=== PATIENT | female | born 1990 | race Two or more races ===

== ENCOUNTER 2020-02-26 04:41 | Inpatient (IN) | payer OTHER ==
[2020-02-26] MEDS ORDERED: Sodium Chloride 0.9% 10 ML Syringe FLUSH PRN ×3 (04:59→05:27)
[2020-02-26] MEDS ORDERED: Lactated Ringers 1,000 ML IV SCH (05:00)
[2020-02-26] MEDS ORDERED: diphenhydrAMINE 50 MG/ML SDV IVPUSH PRN ×3 (05:18→11:55)
[2020-02-26] MEDS ORDERED: Naloxone 0.4 MG/ML SDV IVPUSH PRN ×2 (05:18→11:55)
[2020-02-26] MEDS ORDERED: ePHEDrine 50 MG/ML SDV IVPUSH PRN ×3 (05:18→11:55)
[2020-02-26] MEDS ORDERED: Lactated Ringers 1,000 ML IV ONE (05:18)
[2020-02-26] MEDS ORDERED: Acetaminophen 325 MG Tab PO PRN (05:27)
[2020-02-26] MEDS ORDERED: Ropivacaine 200 MG in Premix Bag 1 BAG EPIDUR SCH (05:30)
--- NOTE | 2020-02-26 05:34 | PCM.LDHP ---
L&D History of Present Illness - General Date of Service: 02/26/20 Admit Problem/Dx: Patient Status Order with Admit Dx/Problem 02/26/20 05:28 Patient Status [ADT] Routine Admission Diagnosis/Problem Admission Diagnosis/Problem - Related Data Allergies/Adverse Reactions: Allergies Allergy/AdvReac Type Severity Reaction Status Date / Time No Known Allergies Allergy Verified 02/26/20 05:21 Home Medications: Home Meds Pnv No.95/Ferrous Fum/Folic AC [ Vitamins Tablet] 1 tab PO DAILY 02/26/20 [History] Past Medical History - Past Health History Medical/Surgical History: Denies Medical/Surgical History Other OB/BYN History: Social & Family History - Family History Family Medical History: Noncontributory H&P Review of Systems - Review of Systems: Review Of Systems: See Below General: Reports: No Symptoms HEENT: Reports: No Symptoms Pulmonary: Reports: No Symptoms Cardiovascular: Reports: No Symptoms Gastrointestinal: Reports: No Symptoms Genitourinary: Reports: No Symptoms Musculoskeletal: Reports: No Symptoms Skin: Reports: No Symptoms Psychiatric: Reports: No Symptoms Neurological: Reports: No Symptoms Hematologic/Lymphatic: Reports: No Symptoms Immunologic: Reports: No Symptoms L&D Exam - Exam Exam: See Below - Vital Signs Vital Signs: Last Vital Signs Temp 36.7 C 02/26/20 04:56 Pulse 79 02/26/20 04:56 Resp 18 02/26/20 04:56 BP 118/63 02/26/20 04:56 Pulse Ox 93 L 02/26/20 04:56 Weight: 59.421 kg - OB Specific Contraction Intensity: Strong Movement: Active Heart Tones: Present Heart Rate (FHR) Variability: Moderate (6-25 bmp) Presentation: Vertex - Guajardo Score Guajardo Score Cervix Position: Anterior Guajardo Score Consistency: Soft Guajardo Score Effacement: >80% Guajardo Score Dilation: > 5 cm Guajardo Score Infant's Station: -1 ,0 Guajardo Score Total: 12 - Exam General: Alert, Oriented, Cooperative HEENT: PERRLA, Conjunctiva Clear, EACs Clear, EOMI, Hearing Intact, Mucosa Moist & [place], Nares Patent, Normal Nasal Septum, Posterior Pharynx Clear, Pupils Equal, Pupils Reactive, TMs Clear Neck: Supple, Trachea Midline Lungs: Clear to Auscultation, Normal Respiratory Effort Cardiovascular: Regular Rate, Regular Rhythm GI/Abdominal Exam: Normal Bowel Sounds, Soft, Non-Tender, No Organomegaly, No Distention, No Abnormal Bruit, No Mass, Pelvis Stable Rectal Exam: Normal Exam, Normal Rectal Tone Genitourinary: Normal external exam, Normal bimanual exam, Normal speculum exam Back Exam: Normal Inspection, Full Range of Motion Extremities: Normal Inspection, Normal Range of Motion, Non-Tender, No Pedal Edema, Normal Capillary Refill Skin: Warm, Dry, Intact Neurological: Cranial Nerves Intact, Reflexes Equal Bilateral Psychiatric: Alert, Normal Affect, Normal Mood - Patient Data Lab Results Last 24 hrs: Laboratory Results - last 24 hr 02/26/20 02/26/20 02/26/20 Range/Units 04:57 05:00 05:00 WBC 7.9 (4.5-11.0) K/uL RBC 4.62 (3.30-5.50) M/uL Hgb 14.1 (12.0-15.0) g/dL Hct 42.6 (36.0-48.0) % MCV 92 (80-98) fL MCH 31 (27-31) pg MCHC 33 (32-36) % Plt Count 142 L (150-400) K/uL Urine Color Yellow (YELLOW) Urine Appearance Slightly cloudy A (CLEAR) Urine pH 7.0 (5.0-8.0) Ur Specific [place] 1.025 (1.008-1.030) Urine Protein Negative (NEGATIVE) mg/dL Urine Glucose (UA) Negative (NEGATIVE) mg/dL Urine Ketones Negative (NEGATIVE) mg/dL Urine Occult Blood Small H (NEGATIVE) Urine Nitrite Negative (NEGATIVE) Urine Bilirubin Negative (NEGATIVE) Urine Urobilinogen 0.2 (0.2-1.0) EU/dL Ur Leukocyte Esterase Negative (NEGATIVE) Urine RBC 0-5 (0-5) Urine WBC 0-5 (0-5) Ur Epithelial Cells Few Amorphous Sediment Not seen Urine Bacteria Few Urine Mucus Not seen Urine Opiates Screen Negative (NEGATIVE) Ur Oxycodone Screen Negative (NEGATIVE) Urine Methadone Screen Negative (NEGATIVE) Ur Propoxyphene Screen Negative (NEGATIVE) Ur Barbiturates Screen Negative (NEGATIVE) Ur Tricyclics Screen Negative (NEGATIVE) Ur Phencyclidine Scrn Negative (NEGATIVE) Ur Amphetamine Screen Negative (NEGATIVE) U Methamphetamines Scrn Negative (NEGATIVE) Urine MDMA Screen Negative (NEGATIVE) U Benzodiazepines Scrn Negative (NEGATIVE) U Cocaine Metab Screen Negative (NEGATIVE) U Marijuana (THC) Screen Negative (NEGATIVE) Result Diagrams: 02/26/20 05:00 - Problem List (1) Labor established SNOMED Code(s): 94400913 ICD Code: [id number] - Status: Acute Current Visit: Yes (2) SNOMED Code(s): 52052496 ICD Code: Z34.90 - ENCNTR FOR SUPRVSN OF NORMAL , UNSP, UNSP TRIMESTER Status: Acute Current Visit: Yes Qualifiers: Weeks of gestation: 40 weeks Qualified Code(s): Z3A.40 - 40 weeks gestation of Problem List Initiated/Reviewed/Updated: Yes Orders Last 24hrs: Active Orders 24 hr Category Date Time Status Patient Status [ADT] Routine ADT 02/26/20 05:28 Ordered Communication Order [RC] ASDIRECTED Care 02/26/20 05:18 Ordered Communication Order [RC] ASDIRECTED Care 02/26/20 05:28 Ordered Communication Order [RC] ROUTINE Care 02/26/20 05:18 Ordered Communication Order [RC] ROUTINE Care 02/26/20 05:18 Ordered Communication Order [RC] ROUTINE Care 02/26/20 05:18 Ordered Heart Tones [RC] PER UNIT ROUTINE Care 02/26/20 05:28 Ordered Non Stress Test [RC] Click to Edit Care 02/26/20 05:28 Ordered Insert Urinary Catheter [OM.PC] ASDIRECTED Care 02/26/20 05:30 Ordered Local Anesthetic Infusion Pump [RC] ASDIRECTED Care 02/26/20 05:18 Ordered May Shower [RC] ASDIRECTED Care 02/26/20 05:27 Ordered Notify Provider Vital Signs [RC] PRN Care 02/26/20 05:27 Ordered Notify Provider [RC] PRN Care 02/26/20 05:28 Ordered OB Check [OM.PC] Click to Edit Care 02/26/20 04:56 Ordered Oxygen Therapy [RC] ASDIRECTED Care 02/26/20 05:18 Ordered PCEA Epidural [RC] ASDIRECTED Care 02/26/20 05:18 Ordered PCEA Epidural [RC] ASDIRECTED Care 02/26/20 05:19 Ordered Peripheral IV Care [RC] . DIRECTED Care 02/26/20 05:19 Ordered Pulse Oximetry [RC] ASDIRECTED Care 02/26/20 05:18 Ordered Up ad Jessika [RC] ASDIRECTED Care 02/26/20 05:27 Ordered Urinary Catheter Assessment [RC] ASDIRECTED Care 02/26/20 05:19 Ordered Vital Signs [RC] PER UNIT ROUTINE Care 02/26/20 05:18 Ordered Vital Signs [RC] PER UNIT ROUTINE Care 02/26/20 05:28 Ordered Acetaminophen [Tylenol] Med 02/26/20 05:27 Ordered 650 mg PO Q4H PRN Lactated Ringers [Ringers, Lactated] 1,000 ml Med 02/26/20 05:18 Ordered IV .BOLUS Lactated Ringers [Ringers, Lactated] 1,000 ml Med 02/26/20 05:15 Ordered IV ASDIRECTED Lactated Ringers [Ringers, Lactated] 1,000 ml Med 02/26/20 05:00 Ordered IV BOLUS Naloxone [Narcan] Med 02/26/20 05:18 Ordered 0.1 mg IVPUSH ASDIRECTED PRN Ondansetron [Zofran] Med 02/26/20 05:27 Ordered 4 mg IV Q4H PRN Oxytocin/Normal Saline [Pitocin in NS 20 Units/1,000 ML Med 02/26/20 05:30 Ordered ] 20 unit in 1,000 ml IV TITRATE Ropivacaine [Naropin 0.2%] 200 mg Med 02/26/20 05:30 Ordered Premix Bag 1 bag EPIDUR ASDIRECTED Sodium Chloride 0.9% [Saline Flush] Med 02/26/20 04:59 Ordered 10 ml FLUSH ASDIRECTED PRN Sodium Chloride 0.9% [Saline Flush] Med 02/26/20 05:18 Ordered 10 ml FLUSH ASDIRECTED PRN Sodium Chloride 0.9% [Saline Flush] Med 02/26/20 05:27 Ordered 10 ml FLUSH ASDIRECTED PRN diphenhydrAMINE [Benadryl] Med 02/26/20 05:18 Ordered 25 mg IVPUSH Q6H PRN diphenhydrAMINE [Benadryl] Med 02/26/20 05:18 Ordered 50 mg IVPUSH Q6H PRN ePHEDrine [ePHEDrine sulfate] Med 02/26/20 05:18 Ordered 10 mg IVPUSH ASDIRECTED PRN Epidural Catheter Management [OM.PC] Routine Oth 02/26/20 05:18 Ordered Epidural Catheter Management [OM.PC] Urgent Oth 02/26/20 05:18 Ordered Peripheral IV Insertion Pediatric [OM.PC] Routine Oth 02/26/20 05:18 Ordered Saline Lock Insert [OM.PC] Routine Oth 02/26/20 04:59 Ordered Saline Lock Insert [OM.PC] Routine Oth 02/26/20 05:28 Ordered Resuscitation Status Routine Resus Stat 02/26/20 05:27 Ordered Medication Orders Acetaminophen (Tylenol) 650 mg PO Q4H PRN PRN Reason: Pain (Mild 1-3) and fever Diphenhydramine HCl (Benadryl) 25 mg IVPUSH Q6H PRN PRN Reason: Itching Diphenhydramine HCl (Benadryl) 50 mg IVPUSH Q6H PRN PRN Reason: Itching Ephedrine Sulfate (Ephedrine Sulfate) 10 mg IVPUSH ASDIRECTED PRN PRN Reason: Hypotension Lactated Ringer's (Ringers, Lactated) 1,000 mls @ 999 mls/hr IV BOLUS RACHELLE Lactated Ringer's (Ringers, Lactated) 1,000 mls @ 125 mls/hr IV ASDIRECTED RACHELLE Oxytocin/Sodium Chloride (Pitocin In Ns 20 Units/1,000 Ml) 20 unit in 1,000 mls @ 6 mls/hr IV TITRATE RACHELLE; Protocol Lactated Ringer's (Ringers, Lactated) 1,000 mls @ 999 mls/hr IV .BOLUS ONE Stop: 02/26/20 06:18 Ropivacaine 200 mg/ Premix 100 mls @ 0 mls/hr EPIDUR ASDIRECTED RACHELLE Naloxone HCl (Narcan) 0.1 mg IVPUSH ASDIRECTED PRN PRN Reason: Oversedation Sodium Chloride (Saline Flush) 10 ml FLUSH ASDIRECTED PRN PRN Reason: Keep Vein Open Sodium Chloride (Saline Flush) 10 ml FLUSH ASDIRECTED PRN PRN Reason: Keep Vein Open Sodium Chloride (Saline Flush) 10 ml FLUSH ASDIRECTED PRN PRN Reason: Keep Vein Open
[2020-02-26] MEDS: Lactated Ringers 1,000 ML IV SCH ×4 (05:47→21:16)
[2020-02-26] MEDS ORDERED: Ropivacaine 100 ML ONE (05:49)
[2020-02-26] MEDS ORDERED: Carboprost Tromethamine 250 MCG/1 ML Amp ONE (05:50)
[2020-02-26] MEDS ORDERED: Methylergonovine 0.2 MG/1 ML Amp ONE (05:50)
[2020-02-26] MEDS ORDERED: Misoprostol 200 MCG Tab ONE (05:50)
--- NOTE | 2020-02-26 09:49 | ANES ---
DATE OF SERVICE: 02/26/2020 TIME: 05:40. I was called to the Labor and Delivery unit by Alma Montenegro for evaluation for a labor epidural. This lady is in active labor and approximately 6 cm or so. Risks and benefits of the procedure were explained to the patient. She wished to proceed with labor epidural. TECHNIQUE: She was placed in a sitting position. Her back was prepped x3 with Betadine. 1% lidocaine skin local was used. The epidural was placed at L3-L4 using a 17-gauge Tuohy needle in loss of resistance technique. The epidural had very good feel throughout, and the epidural space was easily identified. There was negative CSF, negative blood, and negative paresthesias noted. Therefore, a catheter was threaded to 12 cm at the skin. There was negative CSF, negative blood, and negative paresthesias noted in the catheter, therefore a 3 mL test dose of 1.5% lidocaine with epinephrine was given and this test dose was negative. The catheter was then secured with Tegaderm tape and the patient was placed in a supine position. A 0.2% ropivacaine bolus of 10 mL was given. This bolus had very good relief. Therefore a 0.2% ropivacaine drip was started at 10 mL/h. Her vital signs remained stable throughout the procedure. Nurse was with me for the entire procedure. We will continue to monitor her throughout her labor. Isidoro Hyman CRNA /[id number]
--- NOTE | 2020-02-26 10:42 | PCM.PNLD ---
Labor Progress Note - VS & Meds Vital Signs: Last Vital Signs Temp 36.1 C 02/26/20 09:00 Pulse 72 02/26/20 08:30 Resp 18 02/26/20 08:30 BP 111/73 02/26/20 09:30 Pulse Ox 99 02/26/20 09:00 Active Medications: Current Medications Acetaminophen (Tylenol) 650 mg PO Q4H PRN PRN Reason: Pain (Mild 1-3) and fever Diphenhydramine HCl (Benadryl) 25 mg IVPUSH Q6H PRN PRN Reason: Itching Diphenhydramine HCl (Benadryl) 50 mg IVPUSH Q6H PRN PRN Reason: Itching Ephedrine Sulfate (Ephedrine Sulfate) 10 mg IVPUSH ASDIRECTED PRN PRN Reason: Hypotension Last Admin: 02/26/20 06:20 Dose: 10 mg Documented by: Lactated Ringer's (Ringers, Lactated) 1,000 mls @ 125 mls/hr IV ASDIRECTED [facility] Last Admin: 02/26/20 07:05 Dose: 125 mls/hr Documented by: Oxytocin/Sodium Chloride (Pitocin In Ns 20 Units/1,000 Ml) 20 unit in 1,000 mls @ 6 mls/hr IV TITRATE [facility]; Protocol Last Titration: 02/26/20 07:36 Dose: 3 munits/min, 9 mls/hr Documented by: Ropivacaine 200 mg/ Premix 100 mls @ 0 mls/hr EPIDUR ASDIRECTED [facility] Last Admin: 02/26/20 06:05 Dose: 12 mls/hr Documented by: Naloxone HCl (Narcan) 0.1 mg IVPUSH ASDIRECTED PRN PRN Reason: Oversedation Ondansetron HCl (Zofran) 4 mg IV Q4H PRN PRN Reason: Nausea/Vomiting Sodium Chloride (Saline Flush) 10 ml FLUSH ASDIRECTED PRN PRN Reason: Keep Vein Open Discontinued Medications Carboprost Tromethamine (Hemabate Ds) Confirm Administered Dose 250 mcg .ROUTE .STK-MED ONE Stop: 02/26/20 05:51 Lactated Ringer's (Ringers, Lactated) 1,000 mls @ 999 mls/hr IV BOLUS RACHELLE Stop: 02/26/20 08:00 Last Admin: 02/26/20 07:01 Dose: 999 mls/hr Documented by: Oxytocin/Sodium Chloride (Pitocin In Ns 20 Units/1,000 Ml) 20 unit in 1,000 mls @ 2,997 mls/hr IV ONETIME ONE; Protocol Stop: 02/26/20 05:30 Last Admin: 02/26/20 05:48 Dose: 999 munits/min, 2,997 mls/hr Documented by: Lactated Ringer's (Ringers, Lactated) 1,000 mls @ 999 mls/hr IV .BOLUS ONE Stop: 02/26/20 06:18 Last Admin: 02/26/20 05:00 Dose: 999 mls/hr Documented by: Ropivacaine (Naropin 0.2%) Confirm Administered Dose 100 mls @ as directed .ROUTE .STK-MED ONE Stop: 02/26/20 05:50 Methylergonovine Maleate (Methergine) Confirm Administered Dose 0.2 mg .ROUTE .STK-MED ONE Stop: 02/26/20 05:51 Misoprostol (Cytotec) Confirm Administered Dose 800 mcg .ROUTE .STK-MED ONE Stop: 02/26/20 05:51 - Uterine Contractions Uterine Monitoring Mode: External [place] Contraction Frequency (min): 1.5-2 Contraction Duration (sec): 60-100 Contraction Intensity: Strong Uterine Resting Tone: Soft - Monitoring Heart Rate (FHR) Variability: Moderate (6-25 bmp) Accelerations: Present, 15x15 Decelerations: Variable - Vaginal Exam Dilation (cm): 10 Effacement (Percent): 100 Station: 0 Cervical Position: Anterior Sterile Vaginal Exam Performed By: Alma Montenegro - Labor Progress (Free Text) Labor Progress: 02/26/2020 Patient has been pushing now for approximately 2hrs, attempted multiple position changes from squatting to all fours, baby has not moved past the pubic arch. Second steelscope operator call for a second consult, decision made to attempt vacuum extraction. Started this with one contraction and had a pop off, placed again for second contraction and no movement. Decision was made at this time to pro ceed to a primary . Crew and surgeon were notified. Both patient and spouse educated on all options and verbalized understanding and agree to primary . FHTs remain a category one
[2020-02-26] MEDS ORDERED: Oxytocin 10 Units/1 ML SDV ONE ×2 (10:44→10:51)
[2020-02-26] MEDS ORDERED: Lidocaine 2% 5 ML SDV ONE (10:49)
[2020-02-26] MEDS ORDERED: Bupivacaine 0.5% 30 ML SDV ONE (10:51)
[2020-02-26] MEDS ORDERED: fentaNYL 100 MCG/2 ML SDV ONE (10:51)
[2020-02-26] MEDS ORDERED: ceFAZolin 1 GM Vial ONE (11:25)
[2020-02-26] MEDS ORDERED: Oxytocin 10 Units/1 ML SDV IM ONE (11:26)
[2020-02-26] MEDS ORDERED: Morphine PF 10 MG/10 ML SDV ONE (11:39)
[2020-02-26] MEDS ORDERED: ePHEDrine 50 MG/ML SDV ONE (11:40)
[2020-02-26] MEDS ORDERED: Lanolin 100% Cream 40 GM Tube TOP PRN (11:55)
[2020-02-26] MEDS ORDERED: Hydrocortisone 2.5% Crm 30 GM Tube TOP PRN (11:55)
[2020-02-26] MEDS ORDERED: Simethicone 80 MG Tab.Chew PO PRN (11:55)
[2020-02-26] MEDS ORDERED: Witch Hazel Medicated Pads 100/Jar TOP PRN (11:55)
[2020-02-26] MEDS ORDERED: Benzocaine 20% Top Spray 56 GM Bottle TOP PRN (11:55)
[2020-02-26] MEDS ORDERED: Bisacodyl 10 MG Supp RECTAL PRN (11:55)
[2020-02-26] MEDS ORDERED: Ondansetron 4 MG Tab.DIS PO PRN (11:55)
[2020-02-26] MEDS: Ondansetron 4 MG/2 ML SDV IV PRN ×2 (12:56→17:16)
[2020-02-26] MEDS: Ibuprofen 800 MG Tab PO PRN (16:44)
[2020-02-26] MEDS ORDERED: Morphine 4 MG/ML Syringe IVPUSH PRN (20:56)
[2020-02-26] MEDS: Acetaminophen/HYDROcodone 325-5 MG Tab PO PRN (21:00)
[2020-02-27] MEDS: Acetaminophen/HYDROcodone 325-5 MG Tab PO PRN ×5 (01:29→23:34)
[2020-02-27] MEDS: Ibuprofen 800 MG Tab PO PRN ×2 (04:06→16:37)
--- NOTE | 2020-02-27 08:39 | OR ---
DATE OF PROCEDURE: 02/26/2020 SURGEON: Brandon Bruce MD PROCEDURE: section. COMPLICATIONS: None. BIBLICAL LANGUAGES PROFESSOR: Alma Montenegro CNM RISKS: Risks, benefits, alternatives, and limitations including, but not limited to infection; bleeding; injury to baby, bladder; chronic wounds; chronic pain; cardiovascular issues; and other risks not listed here. The patient understands these risks and wished to proceed. PROCEDURE IN DETAIL: The patient was placed in a supine position. A Pfannenstiel type incision was made and this was with a 15 blade. Electrocautery was used then to carry it down to and through the external oblique and anterior fascia. The peritoneum was entered sharply. Muscle spreading technique was performed. The bladder was identified and deflected inferiorly. The uterus was opened bluntly with a [place]. Fluid was noted. Bandage scissors was used to enlarge the uterus. The baby was delivered with mild difficulty. The cord was clamped and cut. The uterus was delivered extracorporeally. The placenta was then delivered. This was noted to be complete. The uterus was inspected for any retained materials, and none was noted. The #1 Vicryl was used to close the uterus in 2 layers of running locked sutures. The 3rd layer was then closed over this. There was some blood noted in the Oliver; however, this was noted preoperatively. The [place] balloon was identified, inspected, but could not be seen due to no obvious rent in the bladder. The abdomen was irrigated, clot was removed. The rectus muscles were reapproximated with #1 Vicryl suture. The fascia was closed with #1 Vicryl, both in running fashion. Subcutaneous tissues approximated with running sutures, and the skin was closed with 4-0 Vicryl. Dermabond was applied. The patient tolerated the procedure well. Brandon Bruce MD /[id number]
[2020-02-27] MEDS: Prenatal Multivitamin with Calcium/Folic Acid/Iron Tab PO SCH (10:37)
--- NOTE | 2020-02-27 11:16 | PN ---
DATE OF SERVICE: 02/27/2020 SUBJECTIVE: The patient doing very well. Pain is well controlled. No nausea. No shortness of breath or chest pain. OBJECTIVE: VITAL SIGNS: Stable. CARDIOVASCULAR: Regular rhythm and rate. RESPIRATORY: Lungs clear to auscultation bilaterally. ABDOMEN: Dressing intact. ASSESSMENT: Status post section. PLAN: The patient is on saline lock. She is tolerating diet. Her pain is well controlled on p.o. pain medications. No nausea, vomiting, shortness of breath, or chest pain. Continue to advance. I would anticipate discharge in next 48 hours. Brandon Bruce MD /[id number]
[2020-02-28] MEDS: Acetaminophen/HYDROcodone 325-5 MG Tab PO PRN (07:13)
[2020-02-28] MEDS: Ibuprofen 800 MG Tab PO PRN ×2 (07:13→17:10)
[2020-02-28] MEDS: Prenatal Multivitamin with Calcium/Folic Acid/Iron Tab PO SCH (09:10)
--- NOTE | 2020-02-28 10:35 | PN ---
DATE OF SERVICE: 02/28/2020 SUBJECTIVE: The patient doing very well. Pain is well controlled. No nausea, vomiting, shortness of breath, or chest pain. OBJECTIVE: VITAL SIGNS: Stable. CARDIOVASCULAR: Regular rhythm and rate. RESPIRATORY: Lungs clear to auscultation bilaterally. ABDOMEN: Incision healing well. ASSESSMENT: Status post section. PLAN: Continue same plan. We will discontinue IV. Anticipate discharge in next 24 hours. Brandon Bruce MD /[id number]
[2020-02-29] MEDS: Ibuprofen 800 MG Tab PO PRN (01:31)
--- NOTE | 2020-03-01 11:45 | DISCH ---
DISCHARGE DIAGNOSIS: Status post section. SUMMARY OF HOSPITAL COURSE: This is a pleasant female who underwent uneventful section. The patient did quite well postoperatively. Her pain was well controlled. No nausea, vomiting, shortness of breath, or chest pain. Incision healed well. DISCHARGE MEDICATIONS: Please see MAR, but include [place] for pain. FOLLOWUP: With Surgery in 7 to 14 days. ADDITIONAL CONSULTATIONS DURING THIS HOSPITALIZATION: None.
--- NOTE | 2020-03-01 14:25 | PN ---
DATE OF SERVICE: 02/29/2020 SUBJECTIVE: The patient is doing very well. Pain is well controlled. No nausea, vomiting, shortness of breath, or chest pain. Incision healing well. ASSESSMENT: Status post . PLAN: The patient will be discharged. Please see discharge summary for additional details. Brandon Bruce MD /[id number]
== END 2020-02-29 12:00 | disposition home or self-care (01) | DRG 788 ==
LOC: JP.OBCHECK 04:41 → JP.OB 04:57 → UNDOADMOB 04:57 → INTOOBSV 11:26 → JP.OB 11:26 → OBSVTOIN 11:26 → JP.MS 11:27 → JP.OB 11:27
PROVIDERS: ADMIT Advanced Practice Midwife; ATTEND Surgery
PROC: 10D00Z0 Extraction of Products of Conception, High, Open Approach (ICD-10-PCS; principal; 2020-02-26)
PROC: 10907ZC Drainage of Amniotic Fluid, Therapeutic from Products of Conception, Via Natural or Artificial Opening (ICD-10-PCS; 2020-02-26)
PROC: 3E0R3BZ Introduction of Anesthetic Agent into Spinal Canal, Percutaneous Approach (ICD-10-PCS; 2020-02-26)
PROC: 00HU33Z Insertion of Infusion Device into Spinal Canal, Percutaneous Approach (ICD-10-PCS; 2020-02-26)
DX: O48.0 Post-term pregnancy (principal); Z37.0 Single live birth; Z3A.40 40 weeks gestation of pregnancy
CPT/HCPCS: 36415; 51701; 51702; 80048; 80305-QW; 81001; 85025; 85027; 86850; 86900; 86901; 99211; A9270-GY; J0690; J2001; J2270; J2405; J2590; J2795; J3010; J3490; J7120